=== PATIENT | male | born 1950 | race Two or more races ===

== ENCOUNTER 2025-07-16 10:34 | Inpatient (IN) | payer OTHER ==
[~2025-07-16] VITALS: Ht 172.7 cm; Wt 166.9 kg
--- NOTE | 2025-07-16 11:07 | NUR ---
PTE ALERTA Y ORIENTADO X3 REFIERE TENER RETENCION DE ORINA Y MUCHO DOLOR. FUE REFERIDO POR DR. DEMPSEY PARA LIZABETH DE EMERGENCIAS Y EL MISMO EXPRESO NO DESEO DE INCERTAR EL FOLI A PTE. SE ADEOLA S/V Y SE UBICA.
[2025-07-16] MEDS ORDERED: MORPHINE SULFATE 4 MG/ML CARTRIDGE IV STA (11:08)
--- NOTE | 2025-07-16 11:20 | NUR ---
SE RECIBE PACIENTE REFIERE TENER RETENCION DE ORINA ES EVALUADO POR QUIEN ORDENA MUESTRAS DE LABORATORIO SE REALIZA Y SE ENVIA AL LABORATORIO.SE CANALIZA EN PERIFERAL RT CON ANGIO #18.SE ADMINISTRO MORFINA 4MG IV POR DOLOR.SE REALIZA EKG Y SE OBSERVA POR CAMBIOS EN ROGEL CONDICION.
[2025-07-16 11:51] LABS: BASO % 0.5 % (0.1-1.2); EOS # 0.02 (0.04-0.54); EOS % 0.2 % (0.7-7.0); LYMPH # 0.52 (1.18-3.74); LYMPH % 5.3 % (19.3-53.1); MEAN PLATELET VOLUME 10.20 fl (9.4-12.4); MONO # 1.09 (0.24-0.82); MONO % 11.1 % (4.7-12.5); NEUT # 8.07 (1.56-6.13); NEUT % 82.4 % (34.0-71.1); RED CELL DISTRIBUTION WIDTH 13.3 % (11.6-14.4)
[2025-07-16 11:54] LABS: ERYTHROCYTE SEDIMENTATION RATE 27 mm/hr (0-20)
[2025-07-16 12:06] LABS: URINE APPEARANCE Turbid; URINE BILIRRUBIN Negative (NEGATIVE); URINE BLOOD Large; URINE COLOR Orange; URINE GLUCOSE Negative (NEGATIVE); URINE KETONE 15 (NEGATIVE); URINE LEUKOCYTE Moderate; URINE NITRATE Negative; URINE UROBILINOGEN 1.0 E.U./dl
[2025-07-16 12:11] LABS: URINE RBC 5186.3 uL (0.0-20.8)
[2025-07-16 12:18] LABS: URINE BACTERIA > 9821.5 uL (0.0-1933); URINE CAST 0.00 uL (0.0-1.40); URINE EPITHELIAL CELLS 0.3 uL (0.0-38.8); URINE PROTEIN 300 (NEGATIVE)
[2025-07-16 12:26] LABS: INR 1.0
[2025-07-16 12:35] LABS: ALT/SGPT 47.0 U/L (12-78); AST/SGOT 20.0 U/L (15-37); BILIRUBIN TOTAL 1.2 mg/dL (0.3-1.2); BUN CREA RATIO 24.0 (7.0-25.0); CREATININE SERUM 1.08 mg/dL (0.70-1.30); GFR 66.65; GLOBULINA 4.5 G/DL (2.4-3.5); GLUCOSE FASTING 127.0 mg/dL (65-100); OSMOLALITY SERUM 286.0 MOSM/KG (275-295)
[2025-07-16] MEDS ORDERED: POVIDONE-IODINE 118 ML BOTT TOP ONE (15:47)
[2025-07-16] MEDS ORDERED: GENTAMICIN SULFATE 40 MG/ML VIAL ONE (16:11)
[2025-07-16] MEDS ORDERED: PIPERACILLIN/TAZOBACTAM SODIUM 3.375 GM VIAL IV ONE ×2 (16:12→23:49)
[2025-07-16] MEDS ORDERED: OXYBUTYNIN CHLORIDE 5 MG TABLET PO SCH (17:23)
[2025-07-16] MEDS ORDERED: MORPHINE SULFATE 4 MG/ML CARTRIDGE IV PRN (17:30)
[2025-07-16] MEDS ORDERED: RINGERS SOLUTION,LACTATED 1,000 ML IV SCH (17:30)
[2025-07-16] MEDS ORDERED: ONDANSETRON HCL 2 MG/ML VIAL IV PRN (17:30)
[2025-07-16] MEDS ORDERED: PIPERACILLIN/TAZOBACTAM SODIUM 3.375 GM in 0.9 % SODIUM CHLORIDE 100 ML IV SCH (18:00)
[2025-07-16] MEDS ORDERED: FAMOTIDINE/PF 20 MG/2 ML VIAL IV SCH (21:00)
[2025-07-16] MEDS ORDERED: DOCUSATE SODIUM 100MG CAP PO SCH (21:00)
[2025-07-17 02:03] VITALS: BP 110/65; O2SAT 98
[2025-07-17] MEDS ORDERED: LEVOTHYROXINE SODIUM 50 MCG TABLET PO SCH (06:00)
[2025-07-17 07:45] LABS: BASO % 0.3 % (0.1-1.2); EOS # 0.00 (0.04-0.54); EOS % 0.0 % (0.7-7.0); LYMPH # 0.17 (1.18-3.74); LYMPH % 1.5 % (19.3-53.1); MEAN PLATELET VOLUME 10.50 fl (9.4-12.4); MONO # 0.63 (0.24-0.82); MONO % 5.5 % (4.7-12.5); NEUT # 10.47 (1.56-6.13); NEUT % 90.9 % (34.0-71.1); RED CELL DISTRIBUTION WIDTH 13.5 % (11.6-14.4)
[2025-07-17 08:00] VITALS: BP 119/66; O2SAT 95
[2025-07-17 08:12] LABS: BUN CREA RATIO 19.0 (7.0-25.0); CREATININE SERUM 1.07 mg/dL (0.70-1.30); GFR 67.37; GLUCOSE FASTING 85.0 mg/dL (65-100); OSMOLALITY SERUM 285.0 MOSM/KG (275-295)
[2025-07-17] MEDS ORDERED: MORPHINE SULFATE 4 MG/ML VIAL IV PRN (08:30)
[2025-07-17] MEDS ORDERED: ENOXAPARIN SODIUM 40 MG/0.4 ML SYRINGE SUBCUTANEO SCH (09:00)
[2025-07-17] MEDS ORDERED: CLONAZEPAM 1 MG TABLET PO SCH (09:00)
[2025-07-17] MEDS ORDERED: GABAPENTIN 400 MG CAPSULE PO SCH (09:00)
[2025-07-17] MEDS ORDERED: BUPROPION HCL 150 MG TABLET.SA PO SCH (09:00)
[2025-07-17 16:49] VITALS: BP 118/76; O2SAT 98
== END 2025-07-17 21:02 | disposition home or self-care (01) | DRG 670 ==
LOC: ER 10:34 → SURG 13:27
PROVIDERS: Physician Assistant Medical; ADMIT Urology; ATTEND Urology
PROC: 0T9B80Z Drainage of Bladder with Drainage Device, Via Natural or Artificial Opening Endoscopic (ICD-10-PCS; 2025-07-16)
PROC: 0TBB8ZZ Excision of Bladder, Via Natural or Artificial Opening Endoscopic (ICD-10-PCS; principal; 2025-07-16 11:00)
DX: N32.0 Bladder-neck obstruction (principal)